=== PATIENT | female | born 1945 | race Caucasian/White ===

== ENCOUNTER 2020-11-16 10:22 | Observation (INO) | payer OTHER ==
[2020-11-16] MEDS ORDERED: GLUCAGON 1 MG KIT ONE (10:30)
[2020-11-16 13:35] LABS: BASO % 0.3 % (0-2.0); EOS % 0.9 % (0-4.5); HEMATOCRIT 37.1 % (32.4-45.2); HEMOGLOBIN 12.1 GM/dL (10.7-15.3); LYMPH % 17.2 % (8-40); MCH 30.6 pg (25.7-33.7); MCHC 32.7 g/dl (32.0-36.0); MEAN CELL VOLUME 93.5 fl (80-96); MEAN PLT VOLUME 10.1 fl (7.5-11.1); MONO % 5.6 % (3.8-10.2); PLATELET COUNT 259 K/MM3 (134-434); RBC 3.97 M/mm3 (3.60-5.2); RDW 13.3 % (11.6-15.6); WHITE BLOOD COUNT 14.1 K/mm3 (4.0-10.0)
[2020-11-16 14:06] LABS: CHLORIDE 94 mmol/L (98-107); SODIUM 130 mmol/L (136-145)
[2020-11-16 14:08] LABS: ALBUMIN 3.6 g/dl (3.4-5.0); ANION GAP 8 MMOL/L (8-16); BLOOD UREA NITROGEN 7.7 mg/dL (7-18); CALCIUM 8.7 mg/dL (8.5-10.1); CO2 28 mmol/L (21-32); GLUCOSE,RANDOM 126 mg/dL (74-106)
[2020-11-16 14:12] LABS: CREATININE 0.6 mg/dL (0.55-1.3); SGOT/AST 29 U/L (15-37)
[2020-11-16 14:13] LABS: BILIRUBIN,TOTAL 0.4 mg/dL (0.2-1); TOT PROT 7.3 g/dl (6.4-8.2)
[2020-11-16] MEDS ORDERED: DEXTROSE 50%-WATER - 25 GM/50 ML VIAL IVPUSH ONE (14:14)
[2020-11-16 14:15] LABS: ALK PHOS 60 U/L (45-117)
[2020-11-16 14:17] LABS: SGPT/ALT 28 U/L (13-61)
[2020-11-16] MEDS ORDERED: DEXTROSE 50%-WATER 25 GM/50 ML DISP.SYRIN ONE (14:18)
[2020-11-16] MEDS: HEPARIN NA (PORCINE) 5,000 UNITS/ML 1ML VIAL SQ SCH (23:30)
[2020-11-16] MEDS: INSULIN SLIDING SCALE (NOVOLOG) 1 VIAL SQ SCH (23:30)
[2020-11-17] MEDS ORDERED: PNEUMOC 13-VAL CONJ-DIP CRM/PF 0.5 ML DISP.SYRIN IM ONE (01:18)
[2020-11-17 02:50] VITALS: BMI 24.6
[2020-11-17] MEDS: INSULIN SLIDING SCALE (NOVOLOG) 1 VIAL SQ SCH ×2 (07:11→12:07)
[2020-11-17] MEDS: HEPARIN NA (PORCINE) 5,000 UNITS/ML 1ML VIAL SQ SCH ×2 (07:11→15:25)
[2020-11-17 08:13] LABS: BASO % 0.4 % (0-2.0); EOS % 1.9 % (0-4.5); HEMATOCRIT 36.1 % (32.4-45.2); HEMOGLOBIN 12.2 GM/dL (10.7-15.3); LYMPH % 38.2 % (8-40); MCH 31.5 pg (25.7-33.7); MCHC 33.8 g/dl (32.0-36.0); MEAN CELL VOLUME 93.2 fl (80-96); MEAN PLT VOLUME 9.5 fl (7.5-11.1); MONO % 9.6 % (3.8-10.2); NEUT % 49.9 % (42.8-82.8); PLATELET COUNT 242 K/MM3 (134-434); RBC 3.87 M/mm3 (3.60-5.2); RDW 13.8 % (11.6-15.6); WHITE BLOOD COUNT 7.9 K/mm3 (4.0-10.0)
[2020-11-17 08:50] LABS: ALBUMIN 3.4 g/dl (3.4-5.0); CALCIUM 8.9 mg/dL (8.5-10.1)
[2020-11-17 08:53] LABS: CREATININE 0.6 mg/dL (0.55-1.3); PHOSPHOROUS 3.6 mg/dL (2.5-4.9)
[2020-11-17 08:56] LABS: BILIRUBIN,TOTAL 0.4 mg/dL (0.2-1); TOT PROT 6.6 g/dl (6.4-8.2)
[2020-11-17 15:23] VITALS: BP 150/87; PULSE 93; TEMP 99
== END 2020-11-17 17:14 | disposition home or self-care (01) ==
LOC: JER 10:22 → JERBED 15:02 → INTOOBSV 15:02 → J8W 21:52
PROVIDERS: ADMIT Internal Medicine; ATTEND Internal Medicine
PROC: 3E033GC Introduction of Other Therapeutic Substance into Peripheral Vein, Percutaneous Approach (ICD-10-PCS; principal; 2020-11-16)
DX: R94.6 Abnormal results of thyroid function studies (principal); E11.649 Type 2 diabetes mellitus with hypoglycemia without coma; Z29.9 Encounter for prophylactic measures, unspecified; E03.9 Hypothyroidism, unspecified; E78.5 Hyperlipidemia, unspecified
CPT/HCPCS: 36415; 71045-TC-FY; 76937; 80053; 82962; 83036; 83735; 84100; 84439; 84443; 84481; 84484; 85025; 93005; 93010; 96374; 99285-25; C9803; G0378; J1644; U0003; U0005

== ENCOUNTER 2022-02-18 09:36 | Inpatient (IN) | payer OTHER ==
[2022-02-18] MEDS ORDERED: ACETAMINOPHEN 1000 MG/100 ML BAG IVPB ONE (09:45)
[2022-02-18] MEDS ORDERED: SODIUM CHLORIDE 0.9% 500 ML INFUS.BAG IV ONE (09:46)
[2022-02-18] MEDS ORDERED: ACETAMINOPHEN INJECTION 100 ML IVPB ONE (09:54)
[2022-02-18 10:22] LABS: VENOUS BASE EXCESS 7.1 mmol/L (-2-2); VENOUS O2 SATURATION 89.4 % (70-80); VENOUS PCO2 37.6 mmHg (38-52); VENOUS PH 7.523 (7.310-7.410)
[2022-02-18 10:28] LABS: HEMOGLOBIN 12.3 GM/dL (10.7-15.3); MCH 31.4 pg (25.7-33.7); MCHC 34.1 g/dl (32.0-36.0); MEAN CELL VOLUME 91.8 fl (80-96); MEAN PLT VOLUME 9.3 fl (7.5-11.1); PLATELET COUNT 301 10^3/uL (134-434); RBC 3.93 M/mm3 (3.60-5.2); RDW 14.4 % (11.6-15.6); WHITE BLOOD COUNT 12.2 K/mm3 (4.0-10.0)
[2022-02-18 10:35] VITALS: BMI 23.3
[2022-02-18 10:36] LABS: INR 1.19 (0.83-1.09); PROTHROMBIN TIME (PATIENT) 13.7 SEC (9.7-13.0)
[2022-02-18 10:39] LABS: ACTIVATED PTT 27.9 SECONDS (25.2-36.5)
[2022-02-18] MEDS ORDERED: VANCOMYCIN 1 GM in D5W (PRE-DOCKED) 1,000 MG/250 ML IVPB ONE (11:12)
[2022-02-18] MEDS ORDERED: PIPERACILLIN/TAZOB 3.375 GM 3.375 GM in DEXTROSE 5%-WATER - 50 ML IVPB ONE (11:12)
[2022-02-18 11:17] LABS: LACTIC ACID 2.3 mmol/L (0.4-2.0)
[2022-02-18] MEDS ORDERED: VANCOMYCIN/WATER FOR INJ (PEG) 1,000 MG/200 ML BAG IVPB ONE (11:17)
[2022-02-18] MEDS ORDERED: PIPERACILLIN/TAZOB 3.375 GM 3.375 GM/50 ML BAG IVPB ONE (11:18)
[2022-02-18 11:29] LABS: ALBUMIN 2.8 g/dl (3.4-5.0); ALK PHOS 54 U/L (45-117); ANION GAP 12 MMOL/L (8-16); BILIRUBIN,TOTAL 0.4 mg/dL (0.2-1); CALCIUM 9.1 mg/dL (8.5-10.1); CHLORIDE 101 mmol/L (98-107); CO2 30 mmol/L (21-32); CREATININE 0.8 mg/dL (0.55-1.3); GLUCOSE,RANDOM 198 mg/dL (74-106); SGOT/AST 23 U/L (15-37); SGPT/ALT 14 U/L (13-61); SODIUM 142 mmol/L (136-145)
[2022-02-18 11:42] LABS: ANISOCYTOSIS 0; HELMET CELLS 0; HOWELL-JOLLY BODIES 0; MACROCYTOSIS 0; OVALOCYTE 0; ROULEAU 0; SICKELED CELLS 0; TARGET CELLS 0; TEAR DROP CELLS 0; TOXIC GRANULATION 0
[2022-02-18 11:55] LABS: EPI CELLS 24 /uL (0-25.1); HYALINE CASTS 5 /uL (0-3.1); URINE APPEARANCE CLEAR; URINE BACTERIA 7 /uL (0-1359); URINE BILIRUBIN NEGATIVE (NEGATIVE); URINE COLOR YELLOW; URINE GLUCOSE (UA) TRACE (NEGATIVE); URINE KETONE 1+ (NEGATIVE); URINE LEUK ESTERASE NEGATIVE (NEGATIVE); URINE NITRITE NEGATIVE (NEGATIVE); URINE PROTEIN 2+ (NEGATIVE); URINE RBC 43 /uL (0-23.9); URINE WBC 13 /uL (0-25.8)
[2022-02-18] MEDS ORDERED: ACETAMINOPHEN 1000 MG/100 ML BAG IVPB PRN (14:09)
[2022-02-18] MEDS ORDERED: REMDESIVIR 200 MG in SODIUM CHLORIDE 250 ML IVPB ONE (16:15)
[2022-02-18] MEDS: DEXAMETHASONE SOD PHOSPHATE 10 MG/1 ML VIAL IVPUSH SCH (16:15)
[2022-02-18] MEDS ORDERED: DEXAMETHASONE SOD PHOSPHATE 10 MG/1 ML VIAL ONE (16:32)
[2022-02-18] MEDS: LACTATED RINGERS SOLUTION 1,000 ML/1,000 ML INFUS.BAG IV SCH (17:27)
[2022-02-18] MEDS: LATANOPROST 0.005% OPHTH SOLN 2.5ML BOTTLE OU SCH (23:26)
[2022-02-19] MEDS ORDERED: AZITHROMYCIN IVPB 500 MG in DEXTROSE 5%-WATER - 250 ML IVPB SCH (10:00)
[2022-02-19] MEDS ORDERED: cefTRIAXone SODIUM 1 GM VIAL ONE (11:20)
[2022-02-19] MEDS ORDERED: DEXTROSE 5%-WATER - 50 ML IVPB ONE (11:20)
[2022-02-19] MEDS: CEFTRIAXONE 1 GM in DEXTROSE 5%-WATER - 50 ML IVPB SCH (11:34)
[2022-02-19] MEDS: ENOXAPARIN NA (PORCINE) 40 MG/0.4 ML DISP.SYRIN SQ SCH (11:34)
[2022-02-19] MEDS: methylPREDNISolone NA SUCC 40 MG/1 ML VIAL IVPUSH SCH ×2 (11:35→18:36)
[2022-02-19] MEDS: PANTOPRAZOLE SODIUM 40 MG VIAL IVPUSH SCH (11:35)
[2022-02-19] MEDS: AZITHROMYCIN IVPB 500 MG/250 ML BAG IVPB SCH (12:26)
[2022-02-19] MEDS: DEXAMETHASONE SOD PHOSPHATE 10 MG/1 ML VIAL IVPUSH SCH (12:27)
[2022-02-19] MEDS: LACTATED RINGERS SOLUTION 1,000 ML/1,000 ML INFUS.BAG IV SCH ×2 (14:24→17:12)
[2022-02-19] MEDS: LEVOTHYROXINE SODIUM 100 MCG VIAL IVPUSH SCH (14:25)
[2022-02-19 15:40] LABS: HEMATOCRIT 35.8 % (32.4-45.2); HEMOGLOBIN 12.1 GM/dL (10.7-15.3); MCH 31.7 pg (25.7-33.7); MCHC 33.7 g/dl (32.0-36.0); MEAN CELL VOLUME 93.9 fl (80-96); MEAN PLT VOLUME 9.6 fl (7.5-11.1); PLATELET COUNT 379 10^3/uL (134-434); RBC 3.82 M/mm3 (3.60-5.2); RDW 14.6 % (11.6-15.6); WHITE BLOOD COUNT 18.1 K/mm3 (4.0-10.0)
[2022-02-19] MEDS: LATANOPROST 0.005% OPHTH SOLN 2.5ML BOTTLE OU SCH (23:18)
[2022-02-20] MEDS: methylPREDNISolone NA SUCC 40 MG/1 ML VIAL IVPUSH SCH ×3 (01:41→17:46)
[2022-02-20] MEDS: LACTATED RINGERS SOLUTION 1,000 ML/1,000 ML INFUS.BAG IV SCH (06:04)
[2022-02-20 09:00] LABS: HEMOGLOBIN 11.5 GM/dL (10.7-15.3); MCH 31.5 pg (25.7-33.7); MCHC 33.8 g/dl (32.0-36.0); MEAN CELL VOLUME 93.1 fl (80-96); MEAN PLT VOLUME 9.2 fl (7.5-11.1); PLATELET COUNT 407 10^3/uL (134-434); RBC 3.66 M/mm3 (3.60-5.2); RDW 14.8 % (11.6-15.6); WHITE BLOOD COUNT 19.3 K/mm3 (4.0-10.0)
[2022-02-20 09:27] LABS: CALCIUM 8.4 mg/dL (8.5-10.1)
[2022-02-20 09:28] LABS: BLOOD UREA NITROGEN 26.6 mg/dL (7-18)
[2022-02-20 09:31] LABS: CREATININE 0.5 mg/dL (0.55-1.3)
[2022-02-20] MEDS: PANTOPRAZOLE SODIUM 40 MG VIAL IVPUSH SCH (09:56)
[2022-02-20] MEDS: ENOXAPARIN NA (PORCINE) 40 MG/0.4 ML DISP.SYRIN SQ SCH (09:56)
[2022-02-20] MEDS: CEFTRIAXONE 1 GM in DEXTROSE 5%-WATER - 50 ML IVPB SCH (09:56)
[2022-02-20] MEDS: LEVOTHYROXINE SODIUM 100 MCG VIAL IVPUSH SCH (09:57)
[2022-02-20] MEDS: AZITHROMYCIN IVPB 500 MG/250 ML BAG IVPB SCH (09:57)
[2022-02-20] MEDS: KCL 10 MEQ IVPB 10 MEQ/100 ML INFUS.BAG IVPB SCH ×3 (11:44→16:35)
[2022-02-20 11:55] LABS: MAGNESIUM 1.7 mg/dL (1.8-2.4)
[2022-02-20] MEDS: AMINO ACIDS 4.25%/D5W 1,000 ML IV SCH (13:59)
[2022-02-20] MEDS ORDERED: KCL 10 MEQ IVPB 10 MEQ/100 ML INFUS.BAG IVPB SCH (14:30)
[2022-02-20] MEDS: LATANOPROST 0.005% OPHTH SOLN 2.5ML BOTTLE OU SCH (22:28)
[2022-02-21] MEDS: methylPREDNISolone NA SUCC 40 MG/1 ML VIAL IVPUSH SCH ×3 (02:28→17:27)
[2022-02-21 08:58] LABS: HEMATOCRIT 35.4 % (32.4-45.2); HEMOGLOBIN 11.9 GM/dL (10.7-15.3); MCH 31.2 pg (25.7-33.7); MCHC 33.6 g/dl (32.0-36.0); MEAN CELL VOLUME 92.7 fl (80-96); MEAN PLT VOLUME 9.4 fl (7.5-11.1); PLATELET COUNT 420 10^3/uL (134-434); RBC 3.83 M/mm3 (3.60-5.2); RDW 14.6 % (11.6-15.6); WHITE BLOOD COUNT 14.9 K/mm3 (4.0-10.0)
[2022-02-21 10:06] LABS: ALBUMIN 2.3 g/dl (3.4-5.0); BLOOD UREA NITROGEN 31.3 mg/dL (7-18)
[2022-02-21 10:07] LABS: BILIRUBIN,TOTAL 0.5 mg/dL (0.2-1); MAGNESIUM 1.6 mg/dL (1.8-2.4); TOT PROT 5.7 g/dl (6.4-8.2)
[2022-02-21 10:10] LABS: CREATININE 0.5 mg/dL (0.55-1.3)
[2022-02-21] MEDS: CEFTRIAXONE 1 GM in DEXTROSE 5%-WATER - 50 ML IVPB SCH (10:45)
[2022-02-21] MEDS: ENOXAPARIN NA (PORCINE) 40 MG/0.4 ML DISP.SYRIN SQ SCH (10:46)
[2022-02-21] MEDS: PANTOPRAZOLE SODIUM 40 MG VIAL IVPUSH SCH (10:46)
[2022-02-21] MEDS: LEVOTHYROXINE SODIUM 100 MCG VIAL IVPUSH SCH (10:47)
[2022-02-21] MEDS: AZITHROMYCIN IVPB 500 MG/250 ML BAG IVPB SCH (10:47)
[2022-02-21] MEDS: AMINO ACIDS 4.25%/D5W 1,000 ML IV SCH ×2 (16:07→17:27)
[2022-02-21] MEDS: LATANOPROST 0.005% OPHTH SOLN 2.5ML BOTTLE OU SCH (21:38)
[2022-02-22] MEDS: methylPREDNISolone NA SUCC 40 MG/1 ML VIAL IVPUSH SCH ×3 (02:05→20:58)
[2022-02-22] MEDS: CEFTRIAXONE 1 GM in DEXTROSE 5%-WATER - 50 ML IVPB SCH (11:34)
[2022-02-22] MEDS: PANTOPRAZOLE SODIUM 40 MG VIAL IVPUSH SCH (11:34)
[2022-02-22] MEDS: LEVOTHYROXINE SODIUM 100 MCG VIAL IVPUSH SCH (11:37)
[2022-02-22] MEDS: ENOXAPARIN NA (PORCINE) 40 MG/0.4 ML DISP.SYRIN SQ SCH (11:42)
[2022-02-22 12:18] LABS: HEMATOCRIT 36.4 % (32.4-45.2); HEMOGLOBIN 12.4 GM/dL (10.7-15.3); MCH 31.7 pg (25.7-33.7); MCHC 33.9 g/dl (32.0-36.0); MEAN CELL VOLUME 93.6 fl (80-96); MEAN PLT VOLUME 9.4 fl (7.5-11.1); PLATELET COUNT 409 10^3/uL (134-434); RBC 3.89 M/mm3 (3.60-5.2); RDW 14.4 % (11.6-15.6); WHITE BLOOD COUNT 13.6 K/mm3 (4.0-10.0)
[2022-02-22 12:36] LABS: CHLORIDE 95 mmol/L (98-107); SODIUM 136 mmol/L (136-145)
[2022-02-22 12:42] LABS: BLOOD UREA NITROGEN 37.6 mg/dL (7-18); CALCIUM 8.6 mg/dL (8.5-10.1)
[2022-02-22 12:43] LABS: ANION GAP 13 MMOL/L (8-16); CO2 29 mmol/L (21-32)
[2022-02-22 12:45] LABS: CREATININE 0.6 mg/dL (0.55-1.3)
[2022-02-22 12:46] LABS: GLUCOSE,RANDOM 423 mg/dL (74-106)
[2022-02-22] MEDS ORDERED: INSULIN (NOVOLOG) ASPART 100 UNITS/ML 10ML VIAL SQ ONE (13:45)
[2022-02-22] MEDS: AMINO ACIDS 4.25%/D5W 1,000 ML IV SCH (14:10)
[2022-02-22] MEDS: INSULIN SLIDING SCALE (NOVOLOG) 1 VIAL SQ SCH ×2 (16:05→21:46)
[2022-02-22] MEDS: LATANOPROST 0.005% OPHTH SOLN 2.5ML BOTTLE OU SCH (21:47)
[2022-02-23 00:29] LABS: CALCIUM 8.6 mg/dL (8.5-10.1)
[2022-02-23 00:30] LABS: BLOOD UREA NITROGEN 38.7 mg/dL (7-18)
[2022-02-23 00:33] LABS: CREATININE 0.6 mg/dL (0.55-1.3)
[2022-02-23] MEDS: methylPREDNISolone NA SUCC 40 MG/1 ML VIAL IVPUSH SCH ×3 (02:24→21:47)
[2022-02-23] MEDS: KCL 10 MEQ IVPB 10 MEQ/100 ML INFUS.BAG IVPB SCH ×3 (06:28→09:18)
[2022-02-23] MEDS: INSULIN SLIDING SCALE (NOVOLOG) 1 VIAL SQ SCH ×4 (06:31→21:47)
[2022-02-23 09:05] LABS: HEMATOCRIT 36.8 % (32.4-45.2); HEMOGLOBIN 12.5 GM/dL (10.7-15.3); MCH 31.7 pg (25.7-33.7); MCHC 33.9 g/dl (32.0-36.0); MEAN CELL VOLUME 93.4 fl (80-96); MEAN PLT VOLUME 9.7 fl (7.5-11.1); PLATELET COUNT 362 10^3/uL (134-434); RBC 3.94 M/mm3 (3.60-5.2); RDW 14.1 % (11.6-15.6); WHITE BLOOD COUNT 15.7 K/mm3 (4.0-10.0)
[2022-02-23] MEDS: ENOXAPARIN NA (PORCINE) 40 MG/0.4 ML DISP.SYRIN SQ SCH (09:16)
[2022-02-23] MEDS: PANTOPRAZOLE SODIUM 40 MG VIAL IVPUSH SCH (09:18)
[2022-02-23 09:26] LABS: BLOOD UREA NITROGEN 36.7 mg/dL (7-18); CALCIUM 8.4 mg/dL (8.5-10.1); MAGNESIUM 1.8 mg/dL (1.8-2.4)
[2022-02-23 09:29] LABS: PHOSPHOROUS 2.9 mg/dL (2.5-4.9)
[2022-02-23 09:30] LABS: CREATININE 0.4 mg/dL (0.55-1.3)
[2022-02-23] MEDS ORDERED: DOXYCYCLINE INJECTION 100 MG in DEXTROSE 5%-WATER 100 ML IVPB SCH (10:00)
[2022-02-23] MEDS: POTASSIUM CHLORIDE 40 MEQ in AMINO ACIDS 4.25%/D5W 1,000 ML IV SCH (11:16)
[2022-02-23] MEDS: LEVOTHYROXINE SODIUM 100 MCG VIAL IVPUSH SCH (11:18)
[2022-02-23] MEDS ORDERED: Insulin (LOG) Aspart 100 UNITS/ML VIAL SQ ONE (19:10)
[2022-02-23] MEDS: LATANOPROST 0.005% OPHTH SOLN 2.5ML BOTTLE OU SCH (21:28)
[2022-02-24] MEDS: POTASSIUM CHLORIDE 40 MEQ in AMINO ACIDS 4.25%/D5W 1,000 ML IV SCH ×2 (02:37→11:43)
[2022-02-24] MEDS: INSULIN SLIDING SCALE (NOVOLOG) 1 VIAL SQ SCH ×4 (06:42→22:03)
[2022-02-24 08:40] LABS: HEMATOCRIT 35.1 % (32.4-45.2); HEMOGLOBIN 11.9 GM/dL (10.7-15.3); MCH 31.3 pg (25.7-33.7); MCHC 33.9 g/dl (32.0-36.0); MEAN CELL VOLUME 92.5 fl (80-96); MEAN PLT VOLUME 9.8 fl (7.5-11.1); PLATELET COUNT 364 10^3/uL (134-434); RBC 3.79 M/mm3 (3.60-5.2); RDW 14.3 % (11.6-15.6); WHITE BLOOD COUNT 15.3 K/mm3 (4.0-10.0)
[2022-02-24 09:01] LABS: CALCIUM 8.3 mg/dL (8.5-10.1)
[2022-02-24 09:02] LABS: ALBUMIN 2.3 g/dl (3.4-5.0); BLOOD UREA NITROGEN 42.4 mg/dL (7-18)
[2022-02-24 09:05] LABS: CREATININE 0.5 mg/dL (0.55-1.3)
[2022-02-24 09:06] LABS: BILIRUBIN,TOTAL 0.5 mg/dL (0.2-1); TOT PROT 5.5 g/dl (6.4-8.2)
[2022-02-24] MEDS: methylPREDNISolone NA SUCC 40 MG/1 ML VIAL IVPUSH SCH ×2 (11:38→21:59)
[2022-02-24] MEDS: PANTOPRAZOLE SODIUM 40 MG VIAL IVPUSH SCH (11:39)
[2022-02-24] MEDS: LEVOTHYROXINE SODIUM 100 MCG VIAL IVPUSH SCH (11:40)
[2022-02-24] MEDS: ENOXAPARIN NA (PORCINE) 40 MG/0.4 ML DISP.SYRIN SQ SCH (11:43)
[2022-02-24] MEDS ORDERED: INSULIN (LEVEMIR) 100 UNITS/ML UNITS SQ ONE ×2 (13:56→15:54)
[2022-02-24] MEDS: LATANOPROST 0.005% OPHTH SOLN 2.5ML BOTTLE OU SCH (22:04)
[2022-02-25] MEDS: INSULIN SLIDING SCALE (NOVOLOG) 1 VIAL SQ SCH ×3 (06:00→17:24)
[2022-02-25] MEDS ORDERED: methylPREDNISolone NA SUCC 40 MG/1 ML VIAL IVPUSH SCH (09:30)
[2022-02-25] MEDS: POTASSIUM CHLORIDE 40 MEQ in AMINO ACIDS 4.25%/D5W 1,000 ML IV SCH (10:56)
[2022-02-25] MEDS: LEVOTHYROXINE SODIUM 100 MCG VIAL IVPUSH SCH (11:03)
[2022-02-25] MEDS: methylPREDNISolone NA SUCC 40 MG/1 ML VIAL IVPUSH SCH (11:03)
[2022-02-25] MEDS: INSULIN (LEVEMIR) 100 UNITS/ML UNITS SQ SCH (11:03)
[2022-02-25] MEDS: PANTOPRAZOLE SODIUM 40 MG VIAL IVPUSH SCH (11:03)
[2022-02-25] MEDS: ENOXAPARIN NA (PORCINE) 40 MG/0.4 ML DISP.SYRIN SQ SCH (11:04)
[2022-02-25 21:49] LABS: BLOOD UREA NITROGEN 33.9 mg/dL (7-18); CALCIUM 8.6 mg/dL (8.5-10.1)
[2022-02-25 21:53] LABS: CREATININE 0.5 mg/dL (0.55-1.3)
[2022-02-25] MEDS ORDERED: FAT EMULSIONS 20% 250 ML PREMIX INFUS.BAG IV SCH (22:02)
[2022-02-26] MEDS: FAT EMULSION/OLIVE/SOY/PHOSPHO 250 ML IV SCH ×2 (00:14→21:35)
[2022-02-26] MEDS: INSULIN SLIDING SCALE (NOVOLOG) 1 VIAL SQ SCH ×5 (00:16→21:34)
[2022-02-26] MEDS: LATANOPROST 0.005% OPHTH SOLN 2.5ML BOTTLE OU SCH ×2 (00:19→21:34)
[2022-02-26] MEDS: POTASSIUM CHLORIDE 40 MEQ in AMINO ACIDS 4.25%/D5W 1,000 ML IV SCH ×2 (04:18→15:55)
[2022-02-26] MEDS: INSULIN (LEVEMIR) 100 UNITS/ML UNITS SQ SCH (11:15)
[2022-02-26] MEDS: ENOXAPARIN NA (PORCINE) 40 MG/0.4 ML DISP.SYRIN SQ SCH (11:17)
[2022-02-26] MEDS: PANTOPRAZOLE SODIUM 40 MG VIAL IVPUSH SCH (11:17)
[2022-02-26] MEDS: methylPREDNISolone NA SUCC 40 MG/1 ML VIAL IVPUSH SCH (11:20)
[2022-02-26] MEDS: LEVOTHYROXINE SODIUM 100 MCG VIAL IVPUSH SCH (11:32)
[2022-02-26 11:46] LABS: HEMATOCRIT 37.5 % (32.4-45.2); HEMOGLOBIN 12.8 GM/dL (10.7-15.3); MCH 31.6 pg (25.7-33.7); MEAN CELL VOLUME 92.9 fl (80-96); MEAN PLT VOLUME 10.6 fl (7.5-11.1); PLATELET COUNT 315 10^3/uL (134-434); RBC 4.04 M/mm3 (3.60-5.2)
[2022-02-26 12:26] LABS: ALBUMIN 2.3 g/dl (3.4-5.0); BILIRUBIN,TOTAL 0.5 mg/dL (0.2-1); BLOOD UREA NITROGEN 35.4 mg/dL (7-18); CALCIUM 8.4 mg/dL (8.5-10.1); CREATININE 0.5 mg/dL (0.55-1.3); MAGNESIUM 1.8 mg/dL (1.8-2.4); PHOSPHOROUS 2.5 mg/dL (2.5-4.9); TOT PROT 5.4 g/dl (6.4-8.2)
[2022-02-27] MEDS: POTASSIUM CHLORIDE 40 MEQ in AMINO ACIDS 4.25%/D5W 1,000 ML IV SCH ×2 (02:30→11:13)
[2022-02-27] MEDS: INSULIN SLIDING SCALE (NOVOLOG) 1 VIAL SQ SCH ×4 (06:44→21:34)
[2022-02-27] MEDS: PANTOPRAZOLE SODIUM 40 MG VIAL IVPUSH SCH (10:52)
[2022-02-27] MEDS: ENOXAPARIN NA (PORCINE) 40 MG/0.4 ML DISP.SYRIN SQ SCH (10:52)
[2022-02-27] MEDS: LEVOTHYROXINE SODIUM 100 MCG VIAL IVPUSH SCH (10:57)
[2022-02-27] MEDS: INSULIN (LEVEMIR) 100 UNITS/ML UNITS SQ SCH (11:12)
[2022-02-27] MEDS: methylPREDNISolone NA SUCC 40 MG/1 ML VIAL IVPUSH SCH (11:14)
[2022-02-27 11:21] LABS: BLOOD UREA NITROGEN 31.7 mg/dL (7-18)
[2022-02-27 11:23] LABS: CALCIUM 8.3 mg/dL (8.5-10.1)
[2022-02-27 11:24] LABS: ALBUMIN 2.3 g/dl (3.4-5.0); MAGNESIUM 1.7 mg/dL (1.8-2.4)
[2022-02-27 11:26] LABS: CREATININE 0.5 mg/dL (0.55-1.3); PHOSPHOROUS 2.4 mg/dL (2.5-4.9)
[2022-02-27 11:27] LABS: BILIRUBIN,TOTAL 0.3 mg/dL (0.2-1); TOT PROT 5.1 g/dl (6.4-8.2)
[2022-02-27 14:03] LABS: HEMATOCRIT 35.5 % (32.4-45.2); MCH 31.2 pg (25.7-33.7); MCHC 33.8 g/dl (32.0-36.0); MEAN CELL VOLUME 92.3 fl (80-96); MEAN PLT VOLUME 10.8 fl (7.5-11.1); PLATELET COUNT 315 10^3/uL (134-434); RBC 3.85 M/mm3 (3.60-5.2); WHITE BLOOD COUNT 13.9 K/mm3 (4.0-10.0)
[2022-02-27] MEDS ORDERED: POTASSIUM PHOSPHATE 30 MM in DEXTROSE 5%-WATER - 500 ML IVPB ONE (16:45)
[2022-02-27] MEDS ORDERED: LACTULOSE 20 GM/30 ML UDC (FOR ORAL USE ONLY) PO ONE (16:50)
[2022-02-27] MEDS ORDERED: MAGNESIUM SULFATE IN WATER 2 GM/50 ML IVPB IVPB ONE (18:15)
[2022-02-27] MEDS: LACTULOSE 20 GM/30 ML UDC (FOR ORAL USE ONLY) PO SCH (21:33)
[2022-02-27] MEDS: LATANOPROST 0.005% OPHTH SOLN 2.5ML BOTTLE OU SCH (21:33)
[2022-02-27] MEDS: NAPH,MB-DB/K PH,MBDB POWDER PACKET PO SCH (21:33)
[2022-02-28] MEDS: LACTULOSE 20 GM/30 ML UDC (FOR ORAL USE ONLY) PO SCH ×3 (06:31→22:27)
[2022-02-28] MEDS: INSULIN SLIDING SCALE (NOVOLOG) 1 VIAL SQ SCH ×4 (06:31→22:29)
[2022-02-28] MEDS: NAPH,MB-DB/K PH,MBDB POWDER PACKET PO SCH ×3 (06:31→22:27)
[2022-02-28] MEDS: LEVOTHYROXINE SODIUM 100 MCG VIAL IVPUSH SCH (10:49)
[2022-02-28] MEDS: methylPREDNISolone NA SUCC 40 MG/1 ML VIAL IVPUSH SCH (10:50)
[2022-02-28] MEDS: PANTOPRAZOLE SODIUM 40 MG VIAL IVPUSH SCH (10:50)
[2022-02-28] MEDS: INSULIN (LEVEMIR) 100 UNITS/ML UNITS SQ SCH (10:51)
[2022-02-28] MEDS: ENOXAPARIN NA (PORCINE) 40 MG/0.4 ML DISP.SYRIN SQ SCH (10:51)
[2022-02-28 17:27] LABS: HEMATOCRIT 38.8 % (32.4-45.2); HEMOGLOBIN 13.1 GM/dL (10.7-15.3); MCH 31.6 pg (25.7-33.7); MCHC 33.9 g/dl (32.0-36.0); MEAN CELL VOLUME 93.4 fl (80-96); MEAN PLT VOLUME 10.3 fl (7.5-11.1); PLATELET COUNT 320 10^3/uL (134-434); RBC 4.15 M/mm3 (3.60-5.2); RDW 14.1 % (11.6-15.6); WHITE BLOOD COUNT 13.7 K/mm3 (4.0-10.0)
[2022-02-28 17:36] LABS: CHLORIDE 99 mmol/L (98-107); SODIUM 132 mmol/L (136-145)
[2022-02-28 17:38] LABS: ALBUMIN 2.4 g/dl (3.4-5.0); ANION GAP 10 MMOL/L (8-16); BLOOD UREA NITROGEN 23.9 mg/dL (7-18); CALCIUM 8.2 mg/dL (8.5-10.1); CO2 24 mmol/L (21-32); GLUCOSE,RANDOM 373 mg/dL (74-106)
[2022-02-28 17:41] LABS: PHOSPHOROUS 2.2 mg/dL (2.5-4.9); SGPT/ALT 25 U/L (13-61)
[2022-02-28 17:42] LABS: CREATININE 0.7 mg/dL (0.55-1.3); SGOT/AST 22 U/L (15-37)
[2022-02-28 17:44] LABS: ALK PHOS 67 U/L (45-117); BILIRUBIN,TOTAL 0.4 mg/dL (0.2-1); TOT PROT 5.6 g/dl (6.4-8.2)
[2022-02-28] MEDS: LATANOPROST 0.005% OPHTH SOLN 2.5ML BOTTLE OU SCH (22:33)
[2022-03-01] MEDS: NAPH,MB-DB/K PH,MBDB POWDER PACKET PO SCH (06:00)
[2022-03-01] MEDS: LACTULOSE 20 GM/30 ML UDC (FOR ORAL USE ONLY) PO SCH ×3 (06:00→22:00)
[2022-03-01] MEDS: INSULIN SLIDING SCALE (NOVOLOG) 1 VIAL SQ SCH ×4 (06:02→22:02)
[2022-03-01 08:26] LABS: HEMATOCRIT 35.5 % (32.4-45.2); HEMOGLOBIN 12.1 GM/dL (10.7-15.3); MCH 31.6 pg (25.7-33.7); MEAN CELL VOLUME 92.9 fl (80-96); MEAN PLT VOLUME 10.6 fl (7.5-11.1); PLATELET COUNT 299 10^3/uL (134-434); RBC 3.82 M/mm3 (3.60-5.2); RDW 13.9 % (11.6-15.6); WHITE BLOOD COUNT 13.3 K/mm3 (4.0-10.0)
[2022-03-01 08:55] LABS: ALBUMIN 2.2 g/dl (3.4-5.0); BLOOD UREA NITROGEN 28.6 mg/dL (7-18)
[2022-03-01 08:57] LABS: CREATININE 0.7 mg/dL (0.55-1.3); PHOSPHOROUS 2.3 mg/dL (2.5-4.9)
[2022-03-01 08:59] LABS: BILIRUBIN,TOTAL 0.3 mg/dL (0.2-1)
[2022-03-01] MEDS ORDERED: methylPREDNISolone NA SUCC 40 MG/1 ML VIAL IVPUSH ONE (11:00)
[2022-03-01] MEDS: ENOXAPARIN NA (PORCINE) 40 MG/0.4 ML DISP.SYRIN SQ SCH (11:15)
[2022-03-01] MEDS: PANTOPRAZOLE SODIUM 40 MG VIAL IVPUSH SCH (11:15)
[2022-03-01] MEDS: THIAMINE HCL 200 MG/2 ML VIAL IVPB SCH (11:16)
[2022-03-01] MEDS: LEVOTHYROXINE SODIUM 100 MCG VIAL IVPUSH SCH (11:16)
[2022-03-01] MEDS: INSULIN (LEVEMIR) 100 UNITS/ML UNITS SQ SCH ×2 (13:24→22:01)
[2022-03-01] MEDS ORDERED: NAPH,MB-DB/K PH,MBDB POWDER PACKET PO SCH (14:00)
[2022-03-01] MEDS ORDERED: INSULIN (LEVEMIR) 100 UNITS/ML UNITS SQ SCH (22:00)
[2022-03-01] MEDS: LATANOPROST 0.005% OPHTH SOLN 2.5ML BOTTLE OU SCH (22:07)
[2022-03-02] MEDS: LACTULOSE 20 GM/30 ML UDC (FOR ORAL USE ONLY) PO SCH ×3 (06:11→22:00)
[2022-03-02] MEDS: INSULIN SLIDING SCALE (NOVOLOG) 1 VIAL SQ SCH ×4 (06:16→23:48)
[2022-03-02] MEDS: INSULIN (LEVEMIR) 100 UNITS/ML UNITS SQ SCH ×2 (06:16→23:47)
[2022-03-02 10:00] LABS: HEMATOCRIT 34.3 % (32.4-45.2); HEMOGLOBIN 11.7 GM/dL (10.7-15.3); MCH 31.6 pg (25.7-33.7); MCHC 34.3 g/dl (32.0-36.0); MEAN CELL VOLUME 92.1 fl (80-96); MEAN PLT VOLUME 10.6 fl (7.5-11.1); PLATELET COUNT 320 10^3/uL (134-434); RBC 3.72 M/mm3 (3.60-5.2); RDW 14.1 % (11.6-15.6)
[2022-03-02 10:43] LABS: CALCIUM 8.5 mg/dL (8.5-10.1)
[2022-03-02 10:44] LABS: ALBUMIN 2.3 g/dl (3.4-5.0); BLOOD UREA NITROGEN 36.3 mg/dL (7-18)
[2022-03-02 10:47] LABS: CREATININE 0.5 mg/dL (0.55-1.3)
[2022-03-02 10:49] LABS: BILIRUBIN,TOTAL 0.3 mg/dL (0.2-1)
[2022-03-02] MEDS ORDERED: INSULIN (NOVOLOG) ASPART 100 UNITS/ML 10ML VIAL ONE (10:50)
[2022-03-02] MEDS: LEVOTHYROXINE SODIUM 100 MCG VIAL IVPUSH SCH (10:55)
[2022-03-02] MEDS: ENOXAPARIN NA (PORCINE) 40 MG/0.4 ML DISP.SYRIN SQ SCH (10:55)
[2022-03-02] MEDS: PANTOPRAZOLE SODIUM 40 MG VIAL IVPUSH SCH (10:56)
[2022-03-02] MEDS: THIAMINE HCL 200 MG/2 ML VIAL IVPB SCH (10:57)
[2022-03-02] MEDS: LATANOPROST 0.005% OPHTH SOLN 2.5ML BOTTLE OU SCH (23:48)
[2022-03-03] MEDS: INSULIN (LEVEMIR) 100 UNITS/ML UNITS SQ SCH ×2 (06:34→22:22)
[2022-03-03] MEDS: LACTULOSE 20 GM/30 ML UDC (FOR ORAL USE ONLY) PO SCH ×3 (06:34→22:22)
[2022-03-03] MEDS: INSULIN SLIDING SCALE (NOVOLOG) 1 VIAL SQ SCH ×4 (06:35→22:22)
[2022-03-03 10:13] LABS: HEMATOCRIT 31.6 % (32.4-45.2); HEMOGLOBIN 10.9 GM/dL (10.7-15.3); MCH 32.3 pg (25.7-33.7); MCHC 34.4 g/dl (32.0-36.0); MEAN CELL VOLUME 93.8 fl (80-96); MEAN PLT VOLUME 9.5 fl (7.5-11.1); RBC 3.37 M/mm3 (3.60-5.2); RDW 14.3 % (11.6-15.6)
[2022-03-03 10:25] LABS: WHITE BLOOD COUNT 11.1 K/mm3 (4.0-10.0)
[2022-03-03 10:26] LABS: PLATELET COUNT 149 10^3/uL (134-434)
[2022-03-03 10:36] LABS: ALBUMIN 2.2 g/dl (3.4-5.0); CALCIUM 8.1 mg/dL (8.5-10.1); MAGNESIUM 1.9 mg/dL (1.8-2.4)
[2022-03-03 10:39] LABS: CREATININE 0.4 mg/dL (0.55-1.3); PHOSPHOROUS 3.1 mg/dL (2.5-4.9)
[2022-03-03 10:41] LABS: BILIRUBIN,TOTAL 0.5 mg/dL (0.2-1); TOT PROT 4.7 g/dl (6.4-8.2)
[2022-03-03] MEDS: PANTOPRAZOLE SODIUM 40 MG VIAL IVPUSH SCH (11:24)
[2022-03-03] MEDS: ENOXAPARIN NA (PORCINE) 40 MG/0.4 ML DISP.SYRIN SQ SCH (11:25)
[2022-03-03] MEDS: LEVOTHYROXINE SODIUM 100 MCG VIAL IVPUSH SCH (11:26)
[2022-03-03] MEDS: THIAMINE HCL 200 MG/2 ML VIAL IVPB SCH (11:33)
[2022-03-03 11:36] LABS: ANISOCYTOSIS 0; MACROCYTOSIS 0; PLATELET ESTIMATE NORMAL
[2022-03-03] MEDS: LATANOPROST 0.005% OPHTH SOLN 2.5ML BOTTLE OU SCH (22:23)
[2022-03-03] MEDS ORDERED: INSULIN (NOVOLOG) ASPART 100 UNITS/ML 10ML VIAL ONE (22:30)
[2022-03-03] MEDS ORDERED: INSULIN (LEVEMIR) 100 UNITS/ML UNITS SQ ONE (22:30)
[2022-03-04] MEDS: LACTULOSE 20 GM/30 ML UDC (FOR ORAL USE ONLY) PO SCH ×3 (06:56→22:20)
[2022-03-04] MEDS: INSULIN (LEVEMIR) 100 UNITS/ML UNITS SQ SCH ×2 (06:56→22:21)
[2022-03-04] MEDS: INSULIN SLIDING SCALE (NOVOLOG) 1 VIAL SQ SCH ×4 (06:59→22:27)
[2022-03-04 07:30] LABS: ALBUMIN 2.1 g/dl (3.4-5.0); CALCIUM 7.7 mg/dL (8.5-10.1)
[2022-03-04 07:31] LABS: BLOOD UREA NITROGEN 36.1 mg/dL (7-18)
[2022-03-04 07:33] LABS: CREATININE 0.4 mg/dL (0.55-1.3)
[2022-03-04 07:34] LABS: PHOSPHOROUS 3.4 mg/dL (2.5-4.9)
[2022-03-04 07:35] LABS: BILIRUBIN,TOTAL 0.2 mg/dL (0.2-1); TOT PROT 4.4 g/dl (6.4-8.2)
[2022-03-04 08:49] LABS: HEMATOCRIT 31.8 % (32.4-45.2); HEMOGLOBIN 11.1 GM/dL (10.7-15.3); MCH 32.8 pg (25.7-33.7); MEAN CELL VOLUME 93.9 fl (80-96); MEAN PLT VOLUME 9.8 fl (7.5-11.1); PLATELET COUNT 313 10^3/uL (134-434); RBC 3.38 M/mm3 (3.60-5.2); RDW 14.8 % (11.6-15.6); WHITE BLOOD COUNT 10.9 K/mm3 (4.0-10.0)
[2022-03-04] MEDS: PANTOPRAZOLE SODIUM 40 MG VIAL IVPUSH SCH (11:21)
[2022-03-04] MEDS: THIAMINE HCL 200 MG/2 ML VIAL IVPB SCH ×2 (11:22→22:20)
[2022-03-04] MEDS: LEVOTHYROXINE SODIUM 100 MCG VIAL IVPUSH SCH (13:18)
[2022-03-04] MEDS: LATANOPROST 0.005% OPHTH SOLN 2.5ML BOTTLE OU SCH (22:20)
[2022-03-05] MEDS: INSULIN (LEVEMIR) 100 UNITS/ML UNITS SQ SCH ×2 (06:16→21:47)
[2022-03-05] MEDS: LACTULOSE 20 GM/30 ML UDC (FOR ORAL USE ONLY) PO SCH ×3 (06:16→21:47)
[2022-03-05] MEDS: INSULIN SLIDING SCALE (NOVOLOG) 1 VIAL SQ SCH ×4 (06:26→21:58)
[2022-03-05] MEDS: LEVOTHYROXINE SODIUM 100 MCG VIAL IVPUSH SCH (09:15)
[2022-03-05] MEDS: PANTOPRAZOLE SODIUM 40 MG VIAL IVPUSH SCH (09:15)
[2022-03-05] MEDS: THIAMINE HCL 200 MG/2 ML VIAL IVPB SCH ×2 (09:16→21:47)
[2022-03-05 10:23] LABS: CHLORIDE 103 mmol/L (98-107); SODIUM 139 mmol/L (136-145)
[2022-03-05 10:27] LABS: ALBUMIN 2.3 g/dl (3.4-5.0); BLOOD UREA NITROGEN 30.5 mg/dL (7-18); GLUCOSE,RANDOM 190 mg/dL (74-106)
[2022-03-05 10:28] LABS: ANION GAP 34 MMOL/L (8-16); CO2 < 1 mmol/L (21-32); SGOT/AST 16 U/L (15-37); SGPT/ALT 19 U/L (13-61)
[2022-03-05 10:29] LABS: CREATININE 0.4 mg/dL (0.55-1.3)
[2022-03-05 10:31] LABS: BILIRUBIN,TOTAL 0.3 mg/dL (0.2-1); TOT PROT 4.8 g/dl (6.4-8.2)
[2022-03-05 10:32] LABS: ALK PHOS 77 U/L (45-117)
[2022-03-05 10:48] LABS: HEMATOCRIT 29.3 % (32.4-45.2); HEMOGLOBIN 10.2 GM/dL (10.7-15.3); MCH 32.6 pg (25.7-33.7); MCHC 34.7 g/dl (32.0-36.0); MEAN CELL VOLUME 93.8 fl (80-96); MEAN PLT VOLUME 9.8 fl (7.5-11.1); PLATELET COUNT 285 10^3/uL (134-434); RBC 3.12 M/mm3 (3.60-5.2); RDW 14.7 % (11.6-15.6); WHITE BLOOD COUNT 8.4 K/mm3 (4.0-10.0)
[2022-03-05 11:26] LABS: CALCIUM QNS mg/dL (8.5-10.1)
[2022-03-05] MEDS ORDERED: INSULIN (NOVOLOG) ASPART 100 UNITS/ML 10ML VIAL ONE (12:16)
[2022-03-05] MEDS: ENOXAPARIN NA (PORCINE) 40 MG/0.4 ML DISP.SYRIN SQ SCH (19:51)
[2022-03-05] MEDS: LATANOPROST 0.005% OPHTH SOLN 2.5ML BOTTLE OU SCH (21:48)
[2022-03-06] MEDS: INSULIN (LEVEMIR) 100 UNITS/ML UNITS SQ SCH ×2 (06:38→21:52)
[2022-03-06] MEDS: LACTULOSE 20 GM/30 ML UDC (FOR ORAL USE ONLY) PO SCH ×3 (06:38→21:50)
[2022-03-06] MEDS: INSULIN SLIDING SCALE (NOVOLOG) 1 VIAL SQ SCH ×4 (06:39→21:52)
[2022-03-06 08:35] LABS: HEMATOCRIT 31.1 % (32.4-45.2); MCH 33.5 pg (25.7-33.7); MCHC 35.6 g/dl (32.0-36.0); MEAN CELL VOLUME 94.3 fl (80-96); MEAN PLT VOLUME 9.7 fl (7.5-11.1); PLATELET COUNT 294 10^3/uL (134-434); RBC 3.29 M/mm3 (3.60-5.2); RDW 15.1 % (11.6-15.6); WHITE BLOOD COUNT 7.9 K/mm3 (4.0-10.0)
[2022-03-06 09:00] LABS: ALBUMIN 2.4 g/dl (3.4-5.0); CALCIUM 8.1 mg/dL (8.5-10.1)
[2022-03-06 09:01] LABS: BLOOD UREA NITROGEN 28.4 mg/dL (7-18)
[2022-03-06 09:02] LABS: CREATININE 0.4 mg/dL (0.55-1.3)
[2022-03-06 09:03] LABS: TOT PROT 4.8 g/dl (6.4-8.2)
[2022-03-06 09:06] LABS: BILIRUBIN,TOTAL 0.8 mg/dL (0.2-1)
[2022-03-06] MEDS: ENOXAPARIN NA (PORCINE) 40 MG/0.4 ML DISP.SYRIN SQ SCH (11:07)
[2022-03-06] MEDS: THIAMINE HCL 200 MG/2 ML VIAL IVPB SCH ×2 (11:07→21:51)
[2022-03-06] MEDS: PANTOPRAZOLE SODIUM 40 MG VIAL IVPUSH SCH (11:07)
[2022-03-06] MEDS: LEVOTHYROXINE SODIUM 100 MCG VIAL IVPUSH SCH (11:07)
[2022-03-06] MEDS ORDERED: INSULIN (NOVOLOG) ASPART 100 UNITS/ML 10ML VIAL ONE (18:18)
[2022-03-06] MEDS: LATANOPROST 0.005% OPHTH SOLN 2.5ML BOTTLE OU SCH (21:53)
[2022-03-07] MEDS: INSULIN (LEVEMIR) 100 UNITS/ML UNITS SQ SCH ×2 (06:26→21:54)
[2022-03-07] MEDS: INSULIN SLIDING SCALE (NOVOLOG) 1 VIAL SQ SCH ×4 (06:26→21:54)
[2022-03-07] MEDS: LACTULOSE 20 GM/30 ML UDC (FOR ORAL USE ONLY) PO SCH ×3 (06:26→21:42)
[2022-03-07] MEDS ORDERED: GLUCAGON 1 MG KIT ONE (09:45)
[2022-03-07] MEDS: LEVOTHYROXINE SODIUM 100 MCG VIAL IVPUSH SCH (10:10)
[2022-03-07] MEDS: PANTOPRAZOLE SODIUM 40 MG VIAL IVPUSH SCH (10:10)
[2022-03-07] MEDS: THIAMINE HCL 200 MG/2 ML VIAL IVPB SCH ×2 (10:11→21:43)
[2022-03-07 12:05] LABS: HEMATOCRIT 34.5 % (32.4-45.2); HEMOGLOBIN 11.9 GM/dL (10.7-15.3); MCH 32.4 pg (25.7-33.7); MCHC 34.5 g/dl (32.0-36.0); MEAN CELL VOLUME 93.8 fl (80-96); MEAN PLT VOLUME 9.5 fl (7.5-11.1); PLATELET COUNT 305 10^3/uL (134-434); RBC 3.68 M/mm3 (3.60-5.2); RDW 14.9 % (11.6-15.6); WHITE BLOOD COUNT 6.4 K/mm3 (4.0-10.0)
[2022-03-07 12:25] LABS: CALCIUM 8.5 mg/dL (8.5-10.1)
[2022-03-07 12:26] LABS: ALBUMIN 2.7 g/dl (3.4-5.0); BLOOD UREA NITROGEN 19.7 mg/dL (7-18); MAGNESIUM 2.2 mg/dL (1.8-2.4)
[2022-03-07 12:29] LABS: CREATININE 0.3 mg/dL (0.55-1.3); PHOSPHOROUS 4.3 mg/dL (2.5-4.9)
[2022-03-07 12:30] LABS: BILIRUBIN,TOTAL 0.6 mg/dL (0.2-1); TOT PROT 5.4 g/dl (6.4-8.2)
[2022-03-07] MEDS ORDERED: GLUCAGON 1 MG KIT IVPUSH ONE (13:30)
[2022-03-07] MEDS ORDERED: FENTANYL CITRATE/PF 50 MCG/ML VIAL IVPUSH ONE (13:30)
[2022-03-07] MEDS: LATANOPROST 0.005% OPHTH SOLN 2.5ML BOTTLE OU SCH (21:43)
[2022-03-08] MEDS: LACTULOSE 20 GM/30 ML UDC (FOR ORAL USE ONLY) PO SCH ×3 (05:36→22:27)
[2022-03-08] MEDS: INSULIN (LEVEMIR) 100 UNITS/ML UNITS SQ SCH ×2 (06:52→22:55)
[2022-03-08] MEDS: INSULIN SLIDING SCALE (NOVOLOG) 1 VIAL SQ SCH ×4 (06:52→22:27)
[2022-03-08] MEDS: ENOXAPARIN NA (PORCINE) 40 MG/0.4 ML DISP.SYRIN SQ SCH (09:42)
[2022-03-08] MEDS: LEVOTHYROXINE SODIUM 100 MCG VIAL IVPUSH SCH (09:42)
[2022-03-08] MEDS: PANTOPRAZOLE SODIUM 40 MG VIAL IVPUSH SCH (09:42)
[2022-03-08] MEDS: THIAMINE HCL 200 MG/2 ML VIAL IVPB SCH ×2 (09:43→23:38)
[2022-03-08 12:01] LABS: HEMATOCRIT 32.2 % (32.4-45.2); HEMOGLOBIN 11.3 GM/dL (10.7-15.3); MCH 33.3 pg (25.7-33.7); MCHC 35.2 g/dl (32.0-36.0); MEAN CELL VOLUME 94.6 fl (80-96); MEAN PLT VOLUME 8.9 fl (7.5-11.1); PLATELET COUNT 277 10^3/uL (134-434); RBC 3.41 M/mm3 (3.60-5.2); RDW 14.9 % (11.6-15.6)
[2022-03-08 12:23] LABS: ALBUMIN 2.5 g/dl (3.4-5.0); CALCIUM 8.4 mg/dL (8.5-10.1)
[2022-03-08 12:24] LABS: BLOOD UREA NITROGEN 23.1 mg/dL (7-18)
[2022-03-08 12:26] LABS: CREATININE 0.4 mg/dL (0.55-1.3)
[2022-03-08 12:28] LABS: BILIRUBIN,TOTAL 0.8 mg/dL (0.2-1); TOT PROT 5.2 g/dl (6.4-8.2)
[2022-03-08] MEDS ORDERED: QUEtiapine FUMARATE 50 MG TABLET PO SCH (22:00)
[2022-03-08] MEDS: DIVALPROEX SODIUM 500 MG TABLET E.C. PO SCH (22:27)
[2022-03-08] MEDS: LATANOPROST 0.005% OPHTH SOLN 2.5ML BOTTLE OU SCH (22:30)
[2022-03-09] MEDS ORDERED: QUEtiapine FUMARATE 50 MG TABLET NGT SCH (00:48)
[2022-03-09] MEDS: LACTULOSE 20 GM/30 ML UDC (FOR ORAL USE ONLY) PEG SCH ×3 (06:06→22:19)
[2022-03-09] MEDS: LEVOTHYROXINE NA 75 MCG TABLET (FP) PEG SCH (06:07)
[2022-03-09] MEDS: INSULIN SLIDING SCALE (NOVOLOG) 1 VIAL SQ SCH ×4 (06:08→22:20)
[2022-03-09] MEDS ORDERED: LEVOTHYROXINE NA 75 MCG TABLET (FP) PO SCH (07:00)
[2022-03-09] MEDS: INSULIN (LEVEMIR) 100 UNITS/ML UNITS SQ SCH ×2 (07:23→22:19)
[2022-03-09] MEDS ORDERED: MEMANTINE HCL 5 MG TABLET (UD) PO SCH (10:00)
[2022-03-09] MEDS: ENOXAPARIN NA (PORCINE) 40 MG/0.4 ML DISP.SYRIN SQ SCH (10:16)
[2022-03-09] MEDS: PARoxetine HCL 10 MG TABLET PO SCH (10:16)
[2022-03-09] MEDS: PANTOPRAZOLE SODIUM 40 MG VIAL IVPUSH SCH (10:17)
[2022-03-09] MEDS: THIAMINE HCL 200 MG/2 ML VIAL IVPB SCH ×2 (10:17→23:13)
[2022-03-09 11:30] LABS: HEMATOCRIT 31.3 % (32.4-45.2); HEMOGLOBIN 10.9 GM/dL (10.7-15.3); MCH 32.6 pg (25.7-33.7); MCHC 34.9 g/dl (32.0-36.0); MEAN CELL VOLUME 93.4 fl (80-96); MEAN PLT VOLUME 8.6 fl (7.5-11.1); PLATELET COUNT 269 10^3/uL (134-434); RBC 3.35 M/mm3 (3.60-5.2); RDW 15.3 % (11.6-15.6); WHITE BLOOD COUNT 5.5 K/mm3 (4.0-10.0)
[2022-03-09 11:55] LABS: BLOOD UREA NITROGEN 18.2 mg/dL (7-18); CALCIUM 8.6 mg/dL (8.5-10.1)
[2022-03-09 11:56] LABS: ALBUMIN 2.7 g/dl (3.4-5.0)
[2022-03-09 11:57] LABS: CREATININE 0.3 mg/dL (0.55-1.3)
[2022-03-09 12:00] LABS: BILIRUBIN,TOTAL 1.1 mg/dL (0.2-1); TOT PROT 5.4 g/dl (6.4-8.2)
[2022-03-09] MEDS: DIVALPROEX SODIUM 500 MG TABLET E.C. PO SCH (12:15)
[2022-03-09] MEDS ORDERED: PANTOPRAZOLE SOD 40 MG SUSPENSION PACKET PO SCH (15:00)
[2022-03-09] MEDS: PANTOPRAZOLE SOD 40 MG SUSPENSION PACKET PO SCH (15:56)
[2022-03-09] MEDS ORDERED: VALPROATE SODIUM 500 MG/5 ML VIAL IVPB SCH (22:00)
[2022-03-09] MEDS: VALPROATE SODIUM 250 MG/5 ML UNIT DOSE CUP GT SCH (22:18)
[2022-03-09] MEDS: LATANOPROST 0.005% OPHTH SOLN 2.5ML BOTTLE OU SCH (22:20)
[2022-03-09] MEDS: QUEtiapine FUMARATE 25 MG TABLET PEG SCH (22:20)
[2022-03-10] MEDS: LACTULOSE 20 GM/30 ML UDC (FOR ORAL USE ONLY) PEG SCH ×3 (06:37→22:01)
[2022-03-10] MEDS: INSULIN SLIDING SCALE (NOVOLOG) 1 VIAL SQ SCH ×4 (06:38→22:03)
[2022-03-10] MEDS: INSULIN (LEVEMIR) 100 UNITS/ML UNITS SQ SCH ×2 (06:38→22:02)
[2022-03-10] MEDS: LEVOTHYROXINE NA 75 MCG TABLET (FP) PEG SCH (06:39)
[2022-03-10 09:30] LABS: HEMATOCRIT 28.6 % (32.4-45.2); MCH 32.8 pg (25.7-33.7); MEAN CELL VOLUME 93.8 fl (80-96); PLATELET COUNT 238 10^3/uL (134-434); RBC 3.05 M/mm3 (3.60-5.2); RDW 15.1 % (11.6-15.6); WHITE BLOOD COUNT 5.4 K/mm3 (4.0-10.0)
[2022-03-10 09:45] LABS: ALBUMIN 2.3 g/dl (3.4-5.0); CALCIUM 8.3 mg/dL (8.5-10.1)
[2022-03-10 09:48] LABS: BLOOD UREA NITROGEN 23.1 mg/dL (7-18); CREATININE 0.5 mg/dL (0.55-1.3); PHOSPHOROUS 2.8 mg/dL (2.5-4.9)
[2022-03-10 09:49] LABS: BILIRUBIN,TOTAL 0.5 mg/dL (0.2-1); TOT PROT 4.9 g/dl (6.4-8.2)
[2022-03-10] MEDS: ENOXAPARIN NA (PORCINE) 40 MG/0.4 ML DISP.SYRIN SQ SCH (10:42)
[2022-03-10] MEDS: MEMANTINE HCL 5 MG TABLET (UD) GT SCH (10:42)
[2022-03-10] MEDS: VALPROATE SODIUM 250 MG/5 ML UNIT DOSE CUP GT SCH ×2 (10:42→22:01)
[2022-03-10] MEDS: THIAMINE HCL 200 MG/2 ML VIAL IVPB SCH ×2 (10:43→22:08)
[2022-03-10] MEDS: PANTOPRAZOLE SOD 40 MG SUSPENSION PACKET PO SCH (10:43)
[2022-03-10] MEDS ORDERED: PAROXETINE HCL ORAL SUSPENSION 10 MG/5 ML PO SCH (10:57)
[2022-03-10] MEDS: PARoxetine HCL 10 MG TABLET PO SCH (13:57)
[2022-03-10] MEDS: QUEtiapine FUMARATE 25 MG TABLET PEG SCH (22:03)
[2022-03-10] MEDS: LATANOPROST 0.005% OPHTH SOLN 2.5ML BOTTLE OU SCH (22:10)
[2022-03-11] MEDS: LEVOTHYROXINE NA 75 MCG TABLET (FP) PEG SCH (06:44)
[2022-03-11] MEDS: LACTULOSE 20 GM/30 ML UDC (FOR ORAL USE ONLY) PEG SCH ×3 (06:44→22:27)
[2022-03-11] MEDS: INSULIN (LEVEMIR) 100 UNITS/ML UNITS SQ SCH ×2 (06:52→22:28)
[2022-03-11] MEDS: INSULIN SLIDING SCALE (NOVOLOG) 1 VIAL SQ SCH ×4 (06:53→22:30)
[2022-03-11] MEDS: ENOXAPARIN NA (PORCINE) 40 MG/0.4 ML DISP.SYRIN SQ SCH (10:04)
[2022-03-11] MEDS: VALPROATE SODIUM 250 MG/5 ML UNIT DOSE CUP GT SCH ×2 (10:04→22:27)
[2022-03-11] MEDS: PANTOPRAZOLE SOD 40 MG SUSPENSION PACKET PO SCH (10:05)
[2022-03-11] MEDS: MEMANTINE HCL 5 MG TABLET (UD) GT SCH (10:05)
[2022-03-11] MEDS: THIAMINE HCL 200 MG/2 ML VIAL IVPB SCH ×3 (10:08→22:32)
[2022-03-11] MEDS: PAROXETINE HCL ORAL SUSPENSION 10 MG/5 ML GT SCH (10:08)
[2022-03-11] MEDS ORDERED: INSULIN (NOVOLOG) ASPART 100 UNITS/ML 10ML VIAL ONE ×2 (11:22→17:25)
[2022-03-11 12:37] LABS: HEMATOCRIT 27.1 % (32.4-45.2); HEMOGLOBIN 9.7 GM/dL (10.7-15.3); MCH 33.6 pg (25.7-33.7); MCHC 35.6 g/dl (32.0-36.0); MEAN CELL VOLUME 94.5 fl (80-96); MEAN PLT VOLUME 8.7 fl (7.5-11.1); PLATELET COUNT 214 10^3/uL (134-434); RBC 2.87 M/mm3 (3.60-5.2); RDW 15.4 % (11.6-15.6); WHITE BLOOD COUNT 5.4 K/mm3 (4.0-10.0)
[2022-03-11 12:57] LABS: ALBUMIN 2.2 g/dl (3.4-5.0); BLOOD UREA NITROGEN 20.4 mg/dL (7-18); CALCIUM 8.1 mg/dL (8.5-10.1)
[2022-03-11 12:59] LABS: CREATININE 0.4 mg/dL (0.55-1.3)
[2022-03-11 13:00] LABS: BILIRUBIN,TOTAL 0.2 mg/dL (0.2-1); TOT PROT 4.8 g/dl (6.4-8.2)
[2022-03-11] MEDS: LACTATED RINGERS SOLUTION 1,000 ML/1,000 ML INFUS.BAG IV SCH (13:39)
[2022-03-11] MEDS: LATANOPROST 0.005% OPHTH SOLN 2.5ML BOTTLE OU SCH (22:36)
[2022-03-12] MEDS: LACTULOSE 20 GM/30 ML UDC (FOR ORAL USE ONLY) PEG SCH ×3 (06:47→21:40)
[2022-03-12] MEDS: INSULIN (LEVEMIR) 100 UNITS/ML UNITS SQ SCH ×2 (06:47→21:39)
[2022-03-12] MEDS: INSULIN SLIDING SCALE (NOVOLOG) 1 VIAL SQ SCH ×4 (06:49→21:54)
[2022-03-12] MEDS: LEVOTHYROXINE NA 75 MCG TABLET (FP) PEG SCH (06:49)
[2022-03-12] MEDS: ENOXAPARIN NA (PORCINE) 40 MG/0.4 ML DISP.SYRIN SQ SCH (10:08)
[2022-03-12] MEDS: VALPROATE SODIUM 250 MG/5 ML UNIT DOSE CUP GT SCH ×2 (10:08→21:40)
[2022-03-12] MEDS: FAMOTIDINE 40 MG/5 ML ORAL SUSPENSION GT SCH ×2 (10:09→21:40)
[2022-03-12] MEDS: MEMANTINE HCL 5 MG TABLET (UD) GT SCH (10:09)
[2022-03-12] MEDS: THIAMINE HCL 200 MG/2 ML VIAL IVPB SCH (10:10)
[2022-03-12] MEDS ORDERED: THIAMINE HCL 100 MG TABLET (FP) NR SCH (10:45)
[2022-03-12] MEDS ORDERED: THIAMINE HCL 100 MG TABLET (FP) PO SCH (10:45)
[2022-03-12] MEDS: PAROXETINE HCL ORAL SUSPENSION 10 MG/5 ML GT SCH (11:35)
[2022-03-12] MEDS: LACTATED RINGERS SOLUTION 1,000 ML/1,000 ML INFUS.BAG IV SCH ×2 (11:38→18:33)
[2022-03-12 12:54] LABS: BASO % 0.4 % (0-2.0); EOS % 5.8 % (0-4.5); HEMATOCRIT 27.7 % (32.4-45.2); HEMOGLOBIN 9.5 GM/dL (10.7-15.3); LYMPH % 28.3 % (8-40); MCH 32.7 pg (25.7-33.7); MCHC 34.1 g/dl (32.0-36.0); MEAN CELL VOLUME 95.7 fl (80-96); MEAN PLT VOLUME 9.1 fl (7.5-11.1); MONO % 9.4 % (3.8-10.2); NEUT % 56.1 % (42.8-82.8); PLATELET COUNT 215 10^3/uL (134-434); RDW 15.6 % (11.6-15.6); WHITE BLOOD COUNT 4.9 K/mm3 (4.0-10.0)
[2022-03-12 13:28] LABS: ALBUMIN 2.3 g/dl (3.4-5.0); BLOOD UREA NITROGEN 11.2 mg/dL (7-18); PHOSPHOROUS 2.8 mg/dL (2.5-4.9)
[2022-03-12 13:29] LABS: BILIRUBIN,TOTAL 0.3 mg/dL (0.2-1)
[2022-03-12 13:30] LABS: TOT PROT 4.9 g/dl (6.4-8.2)
[2022-03-12 13:31] LABS: CREATININE 0.3 mg/dL (0.55-1.3); MAGNESIUM 1.9 mg/dL (1.8-2.4)
[2022-03-12 13:34] LABS: CALCIUM 8.5 mg/dL (8.5-10.1)
[2022-03-12] MEDS: THIAMINE HCL 100 MG TABLET (FP) NR SCH (21:40)
[2022-03-12] MEDS: LATANOPROST 0.005% OPHTH SOLN 2.5ML BOTTLE OU SCH (21:41)
[2022-03-13] MEDS: INSULIN (LEVEMIR) 100 UNITS/ML UNITS SQ SCH ×2 (06:28→22:50)
[2022-03-13] MEDS: LEVOTHYROXINE NA 75 MCG TABLET (FP) PEG SCH (06:28)
[2022-03-13] MEDS: LACTULOSE 20 GM/30 ML UDC (FOR ORAL USE ONLY) PEG SCH (06:28)
[2022-03-13] MEDS: INSULIN SLIDING SCALE (NOVOLOG) 1 VIAL SQ SCH ×4 (06:29→22:45)
[2022-03-13 08:11] LABS: BASO % 0.4 % (0-2.0); EOS % 4.1 % (0-4.5); HEMATOCRIT 28.7 % (32.4-45.2); HEMOGLOBIN 9.9 GM/dL (10.7-15.3); LYMPH % 28.7 % (8-40); MCHC 34.4 g/dl (32.0-36.0); MEAN CELL VOLUME 96.1 fl (80-96); MEAN PLT VOLUME 8.7 fl (7.5-11.1); MONO % 8.6 % (3.8-10.2); NEUT % 58.2 % (42.8-82.8); PLATELET COUNT 208 10^3/uL (134-434); RBC 2.99 M/mm3 (3.60-5.2); RDW 15.4 % (11.6-15.6); WHITE BLOOD COUNT 4.9 K/mm3 (4.0-10.0)
[2022-03-13 08:37] LABS: ALBUMIN 2.1 g/dl (3.4-5.0); BLOOD UREA NITROGEN 8.8 mg/dL (7-18)
[2022-03-13 08:40] LABS: CREATININE 0.3 mg/dL (0.55-1.3)
[2022-03-13 08:42] LABS: BILIRUBIN,TOTAL 0.7 mg/dL (0.2-1); TOT PROT 4.7 g/dl (6.4-8.2)
[2022-03-13] MEDS: THIAMINE HCL 100 MG TABLET (FP) NR SCH ×2 (10:10→22:52)
[2022-03-13] MEDS: VALPROATE SODIUM 250 MG/5 ML UNIT DOSE CUP GT SCH ×2 (10:10→22:51)
[2022-03-13] MEDS: ENOXAPARIN NA (PORCINE) 40 MG/0.4 ML DISP.SYRIN SQ SCH (10:10)
[2022-03-13] MEDS: MEMANTINE HCL 5 MG TABLET (UD) GT SCH (10:11)
[2022-03-13] MEDS: PAROXETINE HCL ORAL SUSPENSION 10 MG/5 ML GT SCH (12:11)
[2022-03-13] MEDS: FAMOTIDINE 40 MG/5 ML ORAL SUSPENSION GT SCH ×2 (13:12→22:51)
[2022-03-13] MEDS: LATANOPROST 0.005% OPHTH SOLN 2.5ML BOTTLE OU SCH (22:48)
[2022-03-14] MEDS: LEVOTHYROXINE NA 75 MCG TABLET (FP) PEG SCH (06:24)
[2022-03-14] MEDS: INSULIN (LEVEMIR) 100 UNITS/ML UNITS SQ SCH ×2 (06:25→22:13)
[2022-03-14] MEDS: INSULIN SLIDING SCALE (NOVOLOG) 1 VIAL SQ SCH ×4 (06:52→22:20)
[2022-03-14] MEDS: ENOXAPARIN NA (PORCINE) 40 MG/0.4 ML DISP.SYRIN SQ SCH (09:39)
[2022-03-14] MEDS: VALPROATE SODIUM 250 MG/5 ML UNIT DOSE CUP GT SCH ×2 (09:39→22:12)
[2022-03-14] MEDS: THIAMINE HCL 100 MG TABLET (FP) NR SCH ×2 (09:39→22:12)
[2022-03-14] MEDS: MEMANTINE HCL 5 MG TABLET (UD) GT SCH (09:42)
[2022-03-14] MEDS: PAROXETINE HCL ORAL SUSPENSION 10 MG/5 ML GT SCH (09:42)
[2022-03-14] MEDS: FAMOTIDINE 40 MG/5 ML ORAL SUSPENSION GT SCH ×2 (09:43→22:12)
[2022-03-14 13:44] LABS: HEMOGLOBIN 10.7 GM/dL (10.7-15.3); MCH 32.8 pg (25.7-33.7); MCHC 34.5 g/dl (32.0-36.0); MEAN CELL VOLUME 95.3 fl (80-96); MEAN PLT VOLUME 8.6 fl (7.5-11.1); PLATELET COUNT 221 10^3/uL (134-434); RBC 3.25 M/mm3 (3.60-5.2); RDW 15.7 % (11.6-15.6); WHITE BLOOD COUNT 4.6 K/mm3 (4.0-10.0)
[2022-03-14 14:14] LABS: CALCIUM 8.5 mg/dL (8.5-10.1)
[2022-03-14 14:15] LABS: ALBUMIN 2.4 g/dl (3.4-5.0); BLOOD UREA NITROGEN 15.4 mg/dL (7-18)
[2022-03-14 14:18] LABS: CREATININE 0.3 mg/dL (0.55-1.3)
[2022-03-14 14:19] LABS: BILIRUBIN,TOTAL 0.5 mg/dL (0.2-1); TOT PROT 5.3 g/dl (6.4-8.2)
[2022-03-14 14:48] LABS: ANISOCYTOSIS 0; HELMET CELLS 0; HOWELL-JOLLY BODIES 0; MACROCYTOSIS 0; OVALOCYTE 0; ROULEAU 0; SICKELED CELLS 0; TARGET CELLS 0; TEAR DROP CELLS 0; TOXIC GRANULATION 0
[2022-03-14] MEDS ORDERED: QUEtiapine FUMARATE 25 MG TABLET PEG SCH (16:59)
[2022-03-14] MEDS: LATANOPROST 0.005% OPHTH SOLN 2.5ML BOTTLE OU SCH (22:13)
[2022-03-15] MEDS: INSULIN (LEVEMIR) 100 UNITS/ML UNITS SQ SCH ×2 (06:15→21:36)
[2022-03-15] MEDS: INSULIN SLIDING SCALE (NOVOLOG) 1 VIAL SQ SCH ×4 (06:22→21:37)
[2022-03-15] MEDS: LEVOTHYROXINE NA 75 MCG TABLET (FP) PEG SCH (06:31)
[2022-03-15 09:29] LABS: BLOOD UREA NITROGEN 15.5 mg/dL (7-18); CALCIUM 8.6 mg/dL (8.5-10.1)
[2022-03-15] MEDS: FAMOTIDINE 40 MG/5 ML ORAL SUSPENSION GT SCH ×2 (09:30→21:37)
[2022-03-15] MEDS: VALPROATE SODIUM 250 MG/5 ML UNIT DOSE CUP GT SCH ×2 (09:30→21:36)
[2022-03-15] MEDS: PAROXETINE HCL ORAL SUSPENSION 10 MG/5 ML GT SCH (09:30)
[2022-03-15] MEDS: MEMANTINE HCL 5 MG TABLET (UD) GT SCH (09:30)
[2022-03-15] MEDS: THIAMINE HCL 100 MG TABLET (FP) NR SCH ×2 (09:30→21:36)
[2022-03-15 09:32] LABS: PHOSPHOROUS 3.6 mg/dL (2.5-4.9)
[2022-03-15 09:33] LABS: CREATININE 0.3 mg/dL (0.55-1.3)
[2022-03-15] MEDS ORDERED: INSULIN (NOVOLOG) ASPART 100 UNITS/ML 10ML VIAL ONE (11:12)
[2022-03-15] MEDS: LATANOPROST 0.005% OPHTH SOLN 2.5ML BOTTLE OU SCH (21:50)
[2022-03-16] MEDS: INSULIN (LEVEMIR) 100 UNITS/ML UNITS SQ SCH ×2 (06:16→22:06)
[2022-03-16] MEDS: LEVOTHYROXINE NA 75 MCG TABLET (FP) PEG SCH (06:16)
[2022-03-16] MEDS: INSULIN SLIDING SCALE (NOVOLOG) 1 VIAL SQ SCH ×4 (06:17→22:11)
[2022-03-16] MEDS: THIAMINE HCL 100 MG TABLET (FP) NR SCH ×2 (09:23→22:05)
[2022-03-16] MEDS: VALPROATE SODIUM 250 MG/5 ML UNIT DOSE CUP GT SCH ×2 (09:23→22:05)
[2022-03-16] MEDS: MEMANTINE HCL 5 MG TABLET (UD) GT SCH (09:23)
[2022-03-16] MEDS: PAROXETINE HCL ORAL SUSPENSION 10 MG/5 ML GT SCH (09:24)
[2022-03-16 09:28] LABS: HEMATOCRIT 30.6 % (32.4-45.2); HEMOGLOBIN 10.4 GM/dL (10.7-15.3); MCH 32.6 pg (25.7-33.7); MCHC 34.1 g/dl (32.0-36.0); MEAN CELL VOLUME 95.6 fl (80-96); PLATELET COUNT 257 10^3/uL (134-434); RDW 15.9 % (11.6-15.6); WHITE BLOOD COUNT 4.8 K/mm3 (4.0-10.0)
[2022-03-16] MEDS: FAMOTIDINE 40 MG/5 ML ORAL SUSPENSION GT SCH ×2 (09:33→22:06)
[2022-03-16 10:15] LABS: BLOOD UREA NITROGEN 16.7 mg/dL (7-18); CALCIUM 8.6 mg/dL (8.5-10.1)
[2022-03-16 10:18] LABS: CREATININE 0.3 mg/dL (0.55-1.3)
[2022-03-16] MEDS: LATANOPROST 0.005% OPHTH SOLN 2.5ML BOTTLE OU SCH (22:05)
[2022-03-17] MEDS: LEVOTHYROXINE NA 75 MCG TABLET (FP) PEG SCH (06:12)
[2022-03-17] MEDS: INSULIN (LEVEMIR) 100 UNITS/ML UNITS SQ SCH ×2 (06:12→22:41)
[2022-03-17] MEDS: INSULIN SLIDING SCALE (NOVOLOG) 1 VIAL SQ SCH ×4 (06:17→22:42)
[2022-03-17 08:20] LABS: BLOOD UREA NITROGEN 22.6 mg/dL (7-18); CALCIUM 8.5 mg/dL (8.5-10.1)
[2022-03-17 08:23] LABS: CREATININE 0.3 mg/dL (0.55-1.3)
[2022-03-17] MEDS: FAMOTIDINE 40 MG/5 ML ORAL SUSPENSION GT SCH ×2 (09:47→22:41)
[2022-03-17] MEDS: MEMANTINE HCL 5 MG TABLET (UD) GT SCH (09:47)
[2022-03-17] MEDS: PAROXETINE HCL ORAL SUSPENSION 10 MG/5 ML GT SCH (09:47)
[2022-03-17] MEDS: VALPROATE SODIUM 250 MG/5 ML UNIT DOSE CUP GT SCH ×2 (09:47→22:40)
[2022-03-17] MEDS: THIAMINE HCL 100 MG TABLET (FP) NR SCH ×2 (09:47→22:44)
[2022-03-17] MEDS: LATANOPROST 0.005% OPHTH SOLN 2.5ML BOTTLE OU SCH (22:47)
[2022-03-18] MEDS: INSULIN (LEVEMIR) 100 UNITS/ML UNITS SQ SCH ×2 (06:09→21:28)
[2022-03-18] MEDS: INSULIN SLIDING SCALE (NOVOLOG) 1 VIAL SQ SCH ×4 (06:11→21:27)
[2022-03-18] MEDS: LEVOTHYROXINE NA 75 MCG TABLET (FP) PEG SCH (06:13)
[2022-03-18 09:28] LABS: CALCIUM 8.5 mg/dL (8.5-10.1)
[2022-03-18 09:29] LABS: BLOOD UREA NITROGEN 21.4 mg/dL (7-18)
[2022-03-18 09:31] LABS: CREATININE 0.4 mg/dL (0.55-1.3)
[2022-03-18 10:03] LABS: HEMATOCRIT 30.3 % (32.4-45.2); HEMOGLOBIN 10.5 GM/dL (10.7-15.3); MCH 33.6 pg (25.7-33.7); MCHC 34.7 g/dl (32.0-36.0); MEAN CELL VOLUME 96.8 fl (80-96); MEAN PLT VOLUME 8.8 fl (7.5-11.1); PLATELET COUNT 334 10^3/uL (134-434); RBC 3.13 M/mm3 (3.60-5.2); RDW 15.9 % (11.6-15.6); WHITE BLOOD COUNT 5.3 K/mm3 (4.0-10.0)
[2022-03-18] MEDS: VALPROATE SODIUM 250 MG/5 ML UNIT DOSE CUP GT SCH ×2 (11:09→21:36)
[2022-03-18] MEDS: PAROXETINE HCL ORAL SUSPENSION 10 MG/5 ML GT SCH (11:10)
[2022-03-18] MEDS: THIAMINE HCL 100 MG TABLET (FP) NR SCH ×2 (11:10→21:37)
[2022-03-18] MEDS: FAMOTIDINE 40 MG/5 ML ORAL SUSPENSION GT SCH ×2 (11:10→21:36)
[2022-03-18] MEDS: MEMANTINE HCL 5 MG TABLET (UD) GT SCH (11:10)
[2022-03-18] MEDS: LATANOPROST 0.005% OPHTH SOLN 2.5ML BOTTLE OU SCH (21:28)
[2022-03-19] MEDS: INSULIN (LEVEMIR) 100 UNITS/ML UNITS SQ SCH ×2 (06:12→22:20)
[2022-03-19] MEDS: INSULIN SLIDING SCALE (NOVOLOG) 1 VIAL SQ SCH ×4 (06:13→22:20)
[2022-03-19] MEDS: LEVOTHYROXINE NA 75 MCG TABLET (FP) PEG SCH (06:13)
[2022-03-19 08:41] LABS: CALCIUM 8.6 mg/dL (8.5-10.1)
[2022-03-19 08:42] LABS: BLOOD UREA NITROGEN 21.8 mg/dL (7-18)
[2022-03-19 08:45] LABS: CREATININE 0.4 mg/dL (0.55-1.3)
[2022-03-19] MEDS: MEMANTINE HCL 5 MG TABLET (UD) GT SCH (10:27)
[2022-03-19] MEDS: VALPROATE SODIUM 250 MG/5 ML UNIT DOSE CUP GT SCH ×2 (10:27→22:20)
[2022-03-19] MEDS: PAROXETINE HCL ORAL SUSPENSION 10 MG/5 ML GT SCH (10:27)
[2022-03-19] MEDS: THIAMINE HCL 100 MG TABLET (FP) NR SCH ×2 (10:28→22:19)
[2022-03-19] MEDS: FAMOTIDINE 40 MG/5 ML ORAL SUSPENSION GT SCH ×2 (10:28→22:24)
[2022-03-19 15:34] VITALS: RESP 20
[2022-03-19] MEDS: LATANOPROST 0.005% OPHTH SOLN 2.5ML BOTTLE OU SCH (22:21)
[2022-03-20 06:14] VITALS: BP 109/68; PULSE 97; TEMP 99.3
[2022-03-20] MEDS: INSULIN SLIDING SCALE (NOVOLOG) 1 VIAL SQ SCH (06:36)
[2022-03-20] MEDS: INSULIN (LEVEMIR) 100 UNITS/ML UNITS SQ SCH (06:36)
[2022-03-20] MEDS: LEVOTHYROXINE NA 75 MCG TABLET (FP) PEG SCH (06:36)
[2022-03-20] MEDS ORDERED: SODIUM CHLORIDE 1,000 ML IV SCH (07:00)
[2022-03-20] MEDS ORDERED: ENOXAPARIN NA (PORCINE) 40 MG/0.4 ML DISP.SYRIN SQ SCH (10:00)
[2022-03-20] MEDS ORDERED: LISINOPRIL 10 MG TABLET PO SCH (10:00)
[2022-03-20] MEDS: VALPROATE SODIUM 250 MG/5 ML UNIT DOSE CUP GT SCH (11:06)
[2022-03-20] MEDS: FAMOTIDINE 40 MG/5 ML ORAL SUSPENSION GT SCH (11:07)
[2022-03-20] MEDS: PAROXETINE HCL ORAL SUSPENSION 10 MG/5 ML GT SCH (11:07)
[2022-03-20] MEDS: MEMANTINE HCL 5 MG TABLET (UD) GT SCH (11:08)
[2022-03-20] MEDS: THIAMINE HCL 100 MG TABLET (FP) NR SCH (11:08)
[2022-03-20 14:31] LABS: CALCIUM 8.2 mg/dL (8.5-10.1)
[2022-03-20 14:32] LABS: BLOOD UREA NITROGEN 19.9 mg/dL (7-18)
[2022-03-20 14:35] LABS: CREATININE 0.3 mg/dL (0.55-1.3)
== END 2022-03-20 11:40 | DRG 710 ==
LOC: JER 09:36 → JERBED 14:33 → J8W 18:11
PROVIDERS: ADMIT Internal Medicine; ATTEND Internal Medicine
PROC: 0DH67UZ Insertion of Feeding Device into Stomach, Via Natural or Artificial Opening (ICD-10-PCS; principal; 2022-03-01)
DX: A41.89 Other specified sepsis (principal); E11.65 Type 2 diabetes mellitus with hyperglycemia; G92.8 Other toxic encephalopathy; J12.82 Pneumonia due to coronavirus disease 2019; J15.212 Pneumonia due to Methicillin resistant Staphylococcus aureus; D72.829 Elevated white blood cell count, unspecified; E72.20 Disorder of urea cycle metabolism, unspecified; E87.2 Acidosis; F03.90 Unspecified dementia, unspecified severity, without behavioral disturbance, psychotic disturbance, mood disturbance, and anxiety; J84.89 Other specified interstitial pulmonary diseases; U07.1 COVID-19; E03.9 Hypothyroidism, unspecified; E78.5 Hyperlipidemia, unspecified; I10 Essential (primary) hypertension; J32.2 Chronic ethmoidal sinusitis; J98.11 Atelectasis
CPT/HCPCS: 0241U-QW; 36415; 49440; 70450-TC; 71045-TC-FY; 71275-TC; 74018-TC-FY; 80048; 80053; 80061; 80164; 81003; 82140; 82550; 82553; 82607; 82746; 82803; 82962; 83036; 83605; 83735; 84100; 84439; 84443; 84478; 84481; 84484; 85025; 85027; 85045; 85379; 85610; 85730; 86140; 87040; 87070; 87086; 87186; 87205; 87899; 93005; 93010; 93971; 94761; 97116-GP; 97161-GP; 99285-25; C9399; C9803-CS; J1100; Q9967; U0003; U0005

== ENCOUNTER → 2022-06-07 | Day surgery (SDC) | payer OTHER | END | disposition home or self-care (01) | LOC: JRADIR 08:52 | PROVIDERS: ATTEND Nurse Practitioner Family | PROC: 4A0B78Z Measurement of Gastrointestinal Motility, Via Natural or Artificial Opening (ICD-10-PCS; principal; 2022-06-07) | DX: Z93.1 Gastrostomy status (principal) | CPT/HCPCS: 49460; 49465 ==